=== PATIENT | female | born 1960 | race Caucasian/White ===

== ENCOUNTER → 2021-09-03 14:14 | Outpatient (BNVA) | payer OTHER, SELFPAY | PROVIDERS: PCP Internal Medicine; Visit Provider Psychiatry & Neurology Neurology ==

== ENCOUNTER 2021-10-16 14:47 | Outpatient (REF) | payer OTHER, SELFPAY ==
--- NOTE | ~2021-10-16 | MR_ITS ---
MR CERVICAL AND LUMBAR SPINE WITHOUT IV CONTRAST CLINICAL INFORMATION: Dorsalgia. COMPARISON: None available. TECHNIQUE: Multiplanar multisequence MR imaging of the cervical spine and lumbar obtained without IV contrast. FINDINGS: CERVICAL SPINE MRI: There are postoperative changes following ACDF at C5-C6. There is mild retrosubluxation of C4 on C5. Vertebral body heights are maintained. The craniocervical junction is unremarkable. There is no bone marrow edema. There are no acute fractures. Cervical arterial flow voids are maintained. There are no significant extraspinal soft tissue findings. Accounting for artifact there are no cord signal changes. Partially imaged intracranial compartment is unremarkable. C2-C3: Shallow central disc protrusion without central canal stenosis. No foraminal stenosis. C3-C4: Shallow central disc protrusion without central canal stenosis. Uncovertebral joint hypertrophy and hypertrophic facet arthropathy result in mild bilateral foraminal encroachment. C4-C5: Advanced uncovertebral joint hypertrophy and hypertrophic facet arthropathy result in severe bilateral foraminal stenosis. Disc osteophyte and ligamentum flavum thickening mildly narrow the central canal. C5-C6: ACDF changes. Uncovertebral joint spurring results in mild right-sided foraminal encroachment. No central canal stenosis. C6-C7: Disc osteophyte without central canal stenosis. No foraminal stenosis. C7-T1: Disc contour normal. No central canal stenosis and no foraminal stenosis. LUMBAR SPINE MRI: There are 5 nonrib-bearing lumbar-type vertebral bodies. Lumbar alignment is normal. The vertebral body heights are maintained. There is moderate disc volume loss at L4-L5 and L5-S1. Modic type I endplate signal changes at L4-L5. No additional bone marrow edema. There are no acute fractures. Conus terminates at the T12 level. There is bilateral perinephric stranding. There are no significant extraspinal soft tissue findings. L1-L2: Disc contour is normal. No central canal stenosis and no foraminal stenosis. L2-L3: Small annular disc bulge. Mild bilateral facet arthropathy. No central canal stenosis and no foraminal stenosis. L3-L4: Small annular disc bulge. Moderate bilateral facet arthropathy and ligamentum flavum thickening. A small right lateral disc osteophyte protrusion contacts the extraforaminal right L3 nerve root. L4-L5: Diffuse annular disc bulges in part disc osteophyte and severe bilateral facet arthropathy and ligamentum flavum thickening. Superimposed left lateral disc protrusion results in severe left foraminal stenosis with compression of the exiting left L4 nerve root. Mild right foraminal encroachment. L5-S1: Far right lateral disc osteophyte protrusion compresses the extraforaminal right L5 nerve root. Mild bilateral facet arthropathy. Small left lateral disc osteophyte complex. No central canal stenosis and no significant foraminal stenosis. MR/MR cervical spine wo con IMPRESSION: - Multilevel cervical spondylosis, greatest at C4-C5 where mild retrosubluxation and advanced spondylitic changes result in severe bilateral foraminal stenosis. ACDF changes at C5-C6. No severe central canal stenosis within the cervical spine. - At L5-S1, a far right lateral disc osteophyte protrusion compresses the extraforaminal right L5 nerve root. - At L4-L5, a left lateral disc protrusion along with advanced left-sided facet arthropathy result in severe left foraminal stenosis with compression of the exiting left L4 nerve root. - At L3-L4, a small right lateral disc osteophyte protrusion contacts the extraforaminal right L3 nerve root.
== END 2021-10-16 14:48 | disposition home or self-care (01) ==
LOC: HO.MRI 14:47
PROVIDERS: PCP Internal Medicine; Visit Provider Psychiatry & Neurology Neurology
DX: M54.9 Dorsalgia, unspecified (principal); M54.2 Cervicalgia; M47.812 Spondylosis without myelopathy or radiculopathy, cervical region; M51.26 Other intervertebral disc displacement, lumbar region; M47.816 Spondylosis without myelopathy or radiculopathy, lumbar region
CPT/HCPCS: 72141; 72148

== ENCOUNTER → 2021-11-14 08:23 | Outpatient (BNVA) | payer OTHER, SELFPAY | PROVIDERS: PCP Internal Medicine; Referring Provider Internal Medicine; Visit Provider Psychiatry & Neurology Neurology | DX: Z13.89 Encounter for screening for other disorder (principal) ==